=== PATIENT | female | born 1960 | race Two or more races ===

== ENCOUNTER 2018-03-24 18:35 | Emergency (ER) | payer OTHER ==
--- NOTE | 2018-03-24 19:09 | ED Physician Documentation ---
PD HPI HEAD INJURY - Stated complaint Stated Complaint: FALL/LADDER - Chief complaint Chief Complaint: General - History obtained from History obtained from: Patient, Family - History of Present Illness Mechanism of head injury: Fell (4 feet from a ladder onto concrete. Hit face, no LOC, has headache. Also hurt L elbow, L hip and neck pain. UTD was 2006.) Review of Systems Constitutional: reports: Reviewed and negative Throat: reports: Reviewed and negative Cardiac: reports: Reviewed and negative Respiratory: reports: Reviewed and negative PD PAST MEDICAL HISTORY - Past Medical History Past Medical History: Yes Musculoskeletal: Other Other Past Medical History: Miniscus tear to right knee - Past Surgical History Past Surgical History: Yes General: Cholecystectomy HEENT: Tonsil/Adenoidectomy - Present Medications Home Medications: Ambulatory Orders Medication Instructions Recorded Confirmed Ciprofloxacin [Cipro] 500 mg PO Q12H 7 Days tablet 11/17/14 Fluticasone [Flonase] 1 puffs INH DAILY 11/17/14 11/17/14 Phenazopyridine HCl [Pyridium] 200 mg PO TID PRN #6 tablet 11/17/14 - Allergies Allergies/Adverse Reactions: Allergies Allergy/AdvReac Type Severity Reaction Status Date / Time shellfish derived Allergy Anaphylaxis Verified 03/24/18 18:54 cefazolin sodium * AdvReac Unknown Verified 11/17/14 18:31 [From Ancef] clindamycin AdvReac Unknown Verified 11/17/14 18:31 - Social History Does the pt smoke?: No Smoking Status: Never smoker Does the pt drink ETOH?: Yes Does the pt have substance abuse?: No - Immunizations Immunizations are current?: No Immunizations: TDAP >10years/unknown - POLST Patient has POLST: No PD ED PE NORMAL - Vitals Vital signs reviewed: Yes - General General: Alert and oriented X 3, No acute distress - HEENT HEENT: PERRL, EOMI, Other (Significant swelling in the supraorbital area on the left without infraorbital tenderness or zygomatic tenderness.) - Neck Neck: Supple, no meningeal sign, Other (Mild upper C-spine tenderness) - Extremities Extremities: Other (Very mild tenderness about both epicondyles left elbow with both with full range of motion. She does have a small ecchymosis over the olecranon. She is slightly tender over the distal radial styloid on the left but with good range of motion. Hips are nontender. She is able to walk and bear weight.) - Neuro Neuro: Alert and oriented X 3, Normal speech Results - Vitals Vitals: Vital Signs - 24 hr 03/24/18 18:39 Temperature 36.4 C L Heart Rate 58 L Respiratory 18 Rate Blood Pressure 170/78 H O2 Saturation 100 Oxygen O2 Source Room air - Rads (name of study) L hip XR/L wrist XR Radiology: EMP read contemporaneously (neg) L elbow XR Radiology: EMP read contemporaneously (neg) Ct Head and Cspine Radiology: EMP read contemporaneously (NAD) Departure - Departure Disposition: 01 Home, Self Care Clinical Impression: Facial contusion Qualifiers: Encounter type: initial encounter Qualified Code(s): S00.83XA - Contusion of other part of head, initial encounter Head injury Qualifiers: Encounter type: initial encounter Qualified Code(s): S09.90XA - Unspecified injury of head, initial encounter Neck sprain Qualifiers: Encounter type: initial encounter Qualified Code(s): S13.9XXA - Sprain of joints and ligaments of unspecified parts of neck, initial encounter Left elbow contusion Qualifiers: Encounter type: initial encounter Qualified Code(s): S50.02XA - Contusion of left elbow, initial encounter Left wrist sprain Qualifiers: Encounter type: initial encounter Qualified Code(s): S63.502A - Unspecified sprain of left wrist, initial encounter Contusion of left hip Qualifiers: Encounter type: initial encounter Qualified Code(s): S70.02XA - Contusion of left hip, initial encounter Condition: Good Record reviewed to determine appropriate education?: Yes Instructions: ED Sprain Strain Neck, ED Head Injury Closed, ED Sprain Wrist Comments: Recheck with your doctor in 1 week for persistent symptoms. Return for new or worsening symptoms. Your blood pressure was elevated today on check into the emergency department. This does not mean that you have hypertension, it is a common phenomenon to come to the emergency department and have elevated blood pressure. I recommend that you see your primary care physician within the week to have it rechecked when you are feeling better.
[2018-03-24] MEDS ORDERED: HYDROmorphone 1 MG/ML CARPUJECT IM STA (19:10)
[2018-03-24] MEDS ORDERED: TETANUS/DIPHTHERIA/PERTUSSIS 0.5 ML SYRINGE IM ONE (19:14)
[2018-03-24] MEDS ORDERED: ONDANSETRON ODT 4 MG TABLET TL STA (19:14)
--- NOTE | 2018-03-24 20:03 | XRAY Report ---
Reason: wrist inj Procedure Date: 03/24/2018 Accession Number: [id number] / [id number] Procedure: XR - Wrist 4 View LT CPT Code: FULL RESULT: EXAM: LEFT WRIST RADIOGRAPHY EXAM DATE: 03/24/2018 07:52 PM. CLINICAL HISTORY: Wrist inj. COMPARISON: None. TECHNIQUE: 3 views. FINDINGS: Bones: Normal. No fractures or bone lesions. Joints: Normal. No subluxations. Soft Tissues: Normal. No soft tissue swelling. IMPRESSION: No fracture or malalignment. RADIA
--- NOTE | 2018-03-24 20:04 | XRAY Report ---
Reason: hip inj Procedure Date: 03/24/2018 Accession Number: [id number] / [id number] Procedure: XR - Hip w/Pelvis 2-3V LT CPT Code: FULL RESULT: EXAM: LEFT HIP AND PELVIS RADIOGRAPHY EXAM DATE: 03/24/2018 07:52 PM. HISTORY: Hip inj. COMPARISONS: None. TECHNIQUE: 1 view of the pelvis and 1 view of the hip. FINDINGS: Bones: Normal. No fracture or bone lesion. Joints: The bilateral hip, pubis symphysis, and sacroiliac joints are preserved. Soft Tissues: Normal. No soft tissue swelling. IMPRESSION: 1. No fracture or malalignment. RADIA
--- NOTE | 2018-03-24 20:06 | XRAY Report ---
Reason: elbow inj Procedure Date: 03/24/2018 Accession Number: [id number] / [id number] Procedure: XR - Elbow 3 View LT CPT Code: FULL RESULT: EXAM: LEFT ELBOW RADIOGRAPHY EXAM DATE: 03/24/2018 07:52 PM. CLINICAL HISTORY: Elbow inj. COMPARISON: None. TECHNIQUE: 3 views. FINDINGS: Bones: Normal. No fractures or bone lesions. Joints: Normal. No effusion. No subluxation. Soft Tissues: Mild proximal posterior left elbow soft tissue swelling noted. No radiopaque foreign bodies are noted. IMPRESSION: 1. No fracture or malalignment. 2. Mild posterior left elbow swelling. RADIA
--- NOTE | 2018-03-24 20:23 | CT Report ---
Reason: head inj Procedure Date: 03/24/2018 Accession Number: [id number] / [id number] Procedure: CT - Head W/O CPT Code: FULL RESULT: EXAM: CT HEAD EXAM DATE: 03/24/2018 07:42 PM. CLINICAL HISTORY: Head inj. COMPARISON: None. TECHNIQUE: Multiaxial CT images were obtained from the foramen magnum to the vertex. Reformats: Sagittal and coronal. IV contrast: None. In accordance with CT protocol optimization, one or more of the following dose reduction techniques were utilized for this exam: automated exposure control, adjustment of mA and/or KV based on patient size, or use of iterative reconstructive technique. FINDINGS: Parenchyma: No intraparenchymal hemorrhage. No evidence of mass, midline shift, or CT findings of infarction. Tirado-white differentiation is distinct. Extraaxial Spaces: Normal for age. No subdural or epidural collections identified. Ventricles: Normal in size and position. Sinuses and Orbits: Imaged paranasal sinuses, orbits, and mastoids show no significant abnormality. Bones: No evidence of fracture or calvarial defect. Other: There is left frontal scalp hematoma. IMPRESSION: No acute intracranial CT abnormality. RADIA
--- NOTE | 2018-03-24 20:25 | CT Report ---
Reason: neck inj Procedure Date: 03/24/2018 Accession Number: [id number] / [id number] Procedure: CT - Cervical Spine W/O CPT Code: FULL RESULT: EXAM: CT CERVICAL SPINE WITHOUT CONTRAST DATE: 03/24/2018 08:04 PM. HISTORY: Fall, pain COMPARISONS: None. TECHNIQUE: Thin-section axial images were acquired of the cervical spine without contrast. Post-processing: Coronal and sagittal reformats. Other: None. In accordance with CT protocol optimization, one or more of the following dose reduction techniques were utilized for this exam: automated exposure control, adjustment of mA and/or KV based on patient size, or use of iterative reconstructive technique. FINDINGS: Alignment: No scoliosis or spondylolisthesis. Bones: No fracture or bone lesion. Interspace Levels/Facets: No evidence of significant degenerative disease. There is mild multilevel facet arthrosis. Musculature: Normal. No fatty atrophy. Other: The paravertebral and prevertebral soft tissues are unremarkable. The lung apices are clear. IMPRESSION: No evidence of cervical spine fracture or dislocation. RADIA
[2018-03-24 20:38] VITALS: BP 121/74
== END 2018-03-24 20:40 | disposition home or self-care (01) ==
LOC: ED 18:35
DX: S00.83XA Contusion of other part of head, initial encounter (principal); S09.90XA Unspecified injury of head, initial encounter; S13.9XXA Sprain of joints and ligaments of unspecified parts of neck, initial encounter; S50.02XA Contusion of left elbow, initial encounter; S63.502A Unspecified sprain of left wrist, initial encounter; S70.02XA Contusion of left hip, initial encounter; W11.XXXA Fall on and from ladder, initial encounter; R03.0 Elevated blood-pressure reading, without diagnosis of hypertension; Z23 Encounter for immunization
CPT/HCPCS: 70450; 72125; 73080; 73110; 73502; 90471; 90715; 99283; Q0162

== ENCOUNTER 2020-03-15 16:57 | Outpatient (CLI) | payer OTHER | END 2020-03-15 16:58 | disposition home or self-care (01) | LOC: COV 16:57 | PROVIDERS: ATTEND Family Medicine | DX: R50.9 Fever, unspecified (principal); Z20.828 Contact with and (suspected) exposure to other viral communicable diseases; R05 Cough; R06.02 Shortness of breath; M79.10 Myalgia, unspecified site; R53.83 Other fatigue; J02.9 Acute pharyngitis, unspecified ==